=== PATIENT | male | born 1970 | race African-American/Black ===

== ENCOUNTER 2017-10-27 09:23 | Emergency (ER) | payer OTHER, BC ==
[2017-10-27] MEDS: LORazepam 2 MG TAB PO (09:42)
== END 2017-10-27 11:35 | disposition home or self-care (01) ==
LOC: M ED 09:23
DX: F41.9 Anxiety disorder, unspecified (principal); Z79.899 Other long term (current) drug therapy
CPT/HCPCS: 99284

== ENCOUNTER 2017-11-07 14:23 | Emergency (ER) | payer OTHER ==
[2017-11-07] MEDS: LORazepam 2 MG TAB PO (15:18)
== END 2017-11-07 16:12 | disposition home or self-care (01) ==
LOC: M ED 14:23
DX: J06.9 Acute upper respiratory infection, unspecified (principal); F41.9 Anxiety disorder, unspecified; Z79.899 Other long term (current) drug therapy
CPT/HCPCS: 99282

== ENCOUNTER 2019-07-10 11:34 | Day surgery (SDC) | payer OTHER ==
[~2019-07-10] VITALS: Ht 180.3 cm; Wt 107.0 kg
[2019-07-10] MEDS: NS 1,000 ML IV ONE (06:00)
[~2019-07-10 11:34] MED LIST: ARIP1TAB2 PO; ATIV1TAB10 PO; DICL50TAB PO; FLAG500T OR; FOLI1TAB OR; LEVA750T OR; METF500T13 PO; METO200T28 PO; MULTCAP PO; MULTIVIT OR; OMEP40CA2 PO; PRAZ2CAP PO; RAMI1CAP26 PO; ROSU40TA4 PO; SERT-138 PO; THIA100T OR; TRAZ-186 PO; VITA50005 PO
[2019-07-10] MEDS ORDERED: PROPOFOL 200 MG/20 ML VIAL As Ordered ONE (13:02)
[2019-07-10] MEDS ORDERED: LIDOCAINE 2% INJ 100 MG/5 ML SDV (FOR ANES.) As Ordered ONE (13:02)
--- NOTE | 2019-07-10 14:36 | ROOR ---
Patient Name: Matt Medina Procedure Date: 07/10/2019 2:01 PM Date of : 1970 Age: 49 Room: [facility] Gender: Male Note Status: Finalized Procedure: Colonoscopy Indications: Screening for colorectal malignant neoplasm Providers: Marco Silva MD Referring MD: Larisa Alaniz Requesting Provider: Medicines: Monitored Anesthesia Care Complications: No immediate complications. Procedure: Pre-Anesthesia Assessment: - Prior to the procedure, a History and Physical was performed, and patient medications and allergies were reviewed. The patient is competent. The risks and benefits of the procedure and the sedation options and risks were discussed with the patient. All questions were answered and informed consent was obtained. Patient identification and proposed procedure were verified by the physician, the nurse and the anesthesiologist in the endoscopy suite. Mental Status Examination: alert and oriented. Airway Examination: normal oropharyngeal airway and neck mobility. Respiratory Examination: clear to auscultation. CV Examination: normal. Prophylactic Antibiotics: The patient does not require prophylactic antibiotics. Prior Anticoagulants: The patient has taken no previous anticoagulant or antiplatelet agents. ASA Grade Assessment: II - A patient with mild systemic disease. After reviewing the risks and benefits, the patient was deemed in satisfactory condition to undergo the procedure. The anesthesia plan was to use monitored anesthesia care (MAC). Immediately prior to administration of medications, the patient was re-assessed for adequacy to receive sedatives. The heart rate, respiratory rate, oxygen saturations, blood pressure, adequacy of pulmonary ventilation, and response to care were monitored throughout the procedure. The physical status of the patient was re-assessed after the procedure. The Colonoscope was introduced through the anus and advanced to the cecum, identified by appendiceal orifice and ileocecal valve. The colonoscopy was technically difficult and complex due to restricted mobility of the colon, a tortuous colon and the patient's body habitus. The patient tolerated the procedure well. The quality of the bowel preparation was good. Findings: The perianal and digital rectal examinations were normal. Scattered small-mouthed diverticula were found in the sigmoid colon, hepatic flexure, ascending colon and cecum. A 5 mm polyp was found in the cecum. The polyp was semi-pedunculated. The polyp was removed with a hot snare. Resection and retrieval were complete. specimen not obtained Two sessile polyps were found in the recto-sigmoid colon. The polyps were 1 to 2 mm in size. These polyps were removed with a cold biopsy forceps. Resection and retrieval were complete. Estimated blood loss was minimal. The retroflexed view of the distal rectum and anal verge was normal and showed no anal or rectal abnormalities. Impression: - Diverticulosis in the sigmoid colon, at the hepatic flexure, in the ascending colon and in the cecum. - One 5 mm polyp in the cecum, removed with a hot snare. Resected and retrieved. - Two 1 to 2 mm polyps at the recto-sigmoid colon, removed with a cold biopsy forceps. Resected and retrieved. - The distal rectum and anal verge are normal on retroflexion view. Recommendation: - Repeat colonoscopy in 5 years for surveillance. - Discharge patient to home (ambulatory). Marco Silva MD Marco Silva MD 07/10/2019 2:35:57 PM Electronically signed by Marco Silva MD Number of Addenda: 0 Note Initiated On: 07/10/2019 2:01 PM Estimated Blood Loss: Estimated blood loss: none.
[2019-07-10 15:10] VITALS: BP 150/62
== END 2019-07-10 15:11 | disposition home or self-care (01) ==
LOC: M OPP 11:34
PROVIDERS: ATTEND Surgery
DX: Z12.11 Encounter for screening for malignant neoplasm of colon (principal); D12.0 Benign neoplasm of cecum; D12.7 Benign neoplasm of rectosigmoid junction; K57.30 Diverticulosis of large intestine without perforation or abscess without bleeding; I10 Essential (primary) hypertension; E78.5 Hyperlipidemia, unspecified; E11.9 Type 2 diabetes mellitus without complications; K21.9 Gastro-esophageal reflux disease without esophagitis; M19.90 Unspecified osteoarthritis, unspecified site; F41.9 Anxiety disorder, unspecified; F32.9 Major depressive disorder, single episode, unspecified; F20.9 Schizophrenia, unspecified; R56.9 Unspecified convulsions; J45.909 Unspecified asthma, uncomplicated; G47.8 Other sleep disorders; G47.30 Sleep apnea, unspecified; R06.83 Snoring; F17.210 Nicotine dependence, cigarettes, uncomplicated; Z79.899 Other long term (current) drug therapy